=== PATIENT | female | born 1995 | race Two or more races ===

== ENCOUNTER 2023-01-28 09:02 | Day surgery (SDC) | payer MEDICAID ==
[~2023-01-28 09:02] MED LIST: Midazolam 1 MG/ML 2 ML SDV ONE; Propofol 200 MG/20 ML SDV ONE; fentaNYL 100 MCG/2 ML SDV ONE
[2023-01-28] MEDS ORDERED: Lactated Ringers 1,000 ML IV SCH (09:30)
== END 2023-01-28 13:13 | disposition home or self-care (01) ==
LOC: JP.SDS 09:02
PROVIDERS: ATTEND Student in an Organized Health Care Education/Training Program
DX: K21.00 Gastro-esophageal reflux disease with esophagitis, without bleeding (principal); K29.50 Unspecified chronic gastritis without bleeding; K31.7 Polyp of stomach and duodenum; F90.9 Attention-deficit hyperactivity disorder, unspecified type; E66.9 Obesity, unspecified; Z88.8 Allergy status to other drugs, medicaments and biological substances; Z86.69 Personal history of other diseases of the nervous system and sense organs; Z68.35 Body mass index [BMI] 35.0-35.9, adult
CPT/HCPCS: 43239; 81025; 88305; 88342; J2250; J2704; J3010; J7120

== ENCOUNTER 2023-02-09 07:08 | Observation (INO) | payer MEDICAID ==
[2023-02-09] MEDS ORDERED: Bupivacaine 0.5%/EPINEPHrine 1:200,000 50 ML MDV ONE (07:14)
[2023-02-09] MEDS ORDERED: Acetaminophen 500 MG Tab PO ONE (07:15)
[2023-02-09] MEDS ORDERED: fentaNYL 250 MCG/5 ML SDV ONE ×2 (07:39→09:24)
[2023-02-09] MEDS ORDERED: Ondansetron 4 MG/2 ML SDV ONE (07:40)
[2023-02-09] MEDS ORDERED: Propofol 200 MG/20 ML SDV ONE (07:40)
[2023-02-09] MEDS ORDERED: Rocuronium 50 MG/5 ML Vial ONE ×2 (07:40→09:24)
[2023-02-09] MEDS ORDERED: Dexamethasone 4 MG/ML SDV ONE (07:40)
[2023-02-09] MEDS ORDERED: Glycopyrrolate 0.2 MG/ML 5 ML MDV ONE (07:40)
[2023-02-09] MEDS ORDERED: Neostigmine Methylsulfate 1 MG/ML 5 ML Syringe ONE (07:40)
[2023-02-09] MEDS ORDERED: Midazolam 1 MG/ML 2 ML SDV ONE (07:42)
[2023-02-09] MEDS ORDERED: Sodium Chloride 0.9% 1,000 ML IV SCH (08:00)
[2023-02-09] MEDS ORDERED: Indocyanine Green 25 MG SDV IV ONE (08:00)
[2023-02-09] MEDS ORDERED: cefTRIAXone 2 GM in Sodium Chloride 0.9% 50 ML IV ONE (08:30)
[2023-02-09] MEDS ORDERED: Scopolamine 1.5 MG Transdermal Patch TOP ONE (08:45)
[2023-02-09] MEDS ORDERED: metroNIDAZOLE/Normal Saline 500 MG in Premix Bag 1 BAG IV ONE (09:00)
[2023-02-09] MEDS ORDERED: Ondansetron 4 MG/2 ML SDV IVPUSH ONE (10:44)
[2023-02-09] MEDS ORDERED: fentaNYL 50 MCG/ML SDV IVPUSH ONE (10:45)
[2023-02-09] MEDS ORDERED: Ketorolac 15 MG/ML SDV IVPUSH ONE (11:30)
[2023-02-09] MEDS ORDERED: HYDROmorphone 0.5 MG/0.5 ML Syringe IVPUSH PRN ×3 (12:45→21:24)
[2023-02-09] MEDS ORDERED: Sennosides/Docusate Sodium 50-8.6 MG Tab PO PRN (13:09)
[2023-02-09] MEDS ORDERED: ALBUTEROL INH PRN (13:12)
[2023-02-09] MEDS ORDERED: Cyclobenzaprine 10 MG Tab PO PRN (13:15)
[2023-02-09] MEDS ORDERED: Naloxone 0.4 MG/ML SDV IVPUSH PRN (13:17)
[2023-02-09] MEDS: Lactated Ringers 1,000 ML IV SCH ×2 (13:30→22:25)
[2023-02-09] MEDS: oxyCODONE 5 MG Tab PO PRN ×2 (13:51→19:29)
[2023-02-09] MEDS ORDERED: Ondansetron 4 MG/2 ML SDV IVPUSH PRN ×3 (14:45→17:49)
[2023-02-09] MEDS ORDERED: Albuterol 6.7 GM Inhaler INH PRN (14:50)
[2023-02-09] MEDS ORDERED: Prochlorperazine 10 MG/2 ML SDV IVPUSH ONE (17:50)
[2023-02-09] MEDS: Ketorolac 15 MG/ML SDV IVPUSH SCH (18:05)
[2023-02-09] MEDS ORDERED: Ketorolac 15 MG/ML SDV IM SCH (19:00)
[2023-02-09] MEDS ORDERED: Ketorolac 30 MG/ML SDV IM SCH (19:00)
[2023-02-09] MEDS: Ondansetron 4 MG/2 ML SDV IVPUSH PRN (19:27)
[2023-02-09] MEDS ORDERED: Prochlorperazine 10 MG/2 ML SDV IVPUSH PRN (21:24)
[2023-02-09] MEDS ORDERED: Acetaminophen 1,000 MG in Premix Bag 1 BAG IV SCH (21:30)
[2023-02-09] MEDS: lamoTRIgine 100 MG Tab PO SCH (22:13)
[2023-02-09] MEDS: Acetaminophen 1,000 MG in Premix Bag 1 BAG IV SCH (22:23)
[2023-02-10] MEDS ORDERED: Calcium Carbonate 500 MG Tab.Chew PO ONE (01:05)
[2023-02-10] MEDS: Ketorolac 15 MG/ML SDV IVPUSH SCH ×2 (01:05→07:31)
[2023-02-10 06:06] LABS: A/G RATIO 1.2 (1.2-2.2); ALANINE AMINOTRANSFERASE,ALT 27 U/L (12-78); ALBUMIN 3.6 g/dL (3.4-5.0); ALKALINE PHOSPHATASE 54 U/L (46-116); ANION GAP 11.4 mmol/L (5.0-14.0); ASPARTATE AMNIOTRANSFERASE,AST 30 U/L (15-37); BILIRUBIN TOTAL 0.4 mg/dL (0.2-1.0); CARBON DIOXIDE,CO2 25 mmol/L (21-32); CHLORIDE,CL 104 mmol/L (100-108); POTASSIUM,K 3.9 mmol/L (3.6-5.2); PROTEIN TOTAL,TP 6.7 g/dL (6.4-8.2); SODIUM,NA 140 mmol/L (140-148)
[2023-02-10] MEDS: Acetaminophen 1,000 MG in Premix Bag 1 BAG IV SCH (06:09)
[2023-02-10 06:27] LABS: MAGNESIUM 1.8 mg/dL (1.8-2.4); PHOSPHORUS 4.1 mg/dL (2.5-4.9)
[2023-02-10 07:16] LABS: HEMATOCRIT 38.3 % (34.3-46.0); HEMOGLOBIN 13.4 g/dL (11.2-15.5); MEAN CORPUSCULAR HEMOGLOBIN 28.4 pg (31.6-35.5); MEAN CORPUSCULAR VOLUME 81.1 fL (81.4-99.0); RED BLOOD CELL COUNT 4.72 M/uL (3.77-5.24)
[2023-02-10] MEDS: Ondansetron 4 MG/2 ML SDV IVPUSH PRN (07:28)
[2023-02-10] MEDS ORDERED: Pantoprazole 40 MG Tab.CR PO SCH (07:30)
[2023-02-10 07:55] LABS: BLOOD UREA NITROGEN,BUN 7 mg/dL (7-18); CALCIUM 8.8 mg/dL (8.5-10.1); CREATININE 0.6 mg/dL (0.6-1.0); EST CRCL DRUG DOSING (CG) 136.96 mL/min; ESTIMATED GFR 126 mL/min (>60); GLUCOSE RANDOM 109 mg/dL (74-106)
[2023-02-10] MEDS ORDERED: Non-Formulary Medication 1 Each (Omeprazole [Omeprazole] 40 MG Cap.Cr) PO SCH (09:00)
[2023-02-10] MEDS ORDERED: ELAGOLIX SODIUM 150 MG PO SCH (09:00)
[2023-02-10] MEDS: lamoTRIgine 100 MG Tab PO SCH (09:37)
[2023-02-10] MEDS: Lactated Ringers 1,000 ML IV SCH (09:37)
[2023-02-10] MEDS ORDERED: Cyclobenzaprine 10 MG Tab PO PRN (10:00)
[2023-02-10] MEDS ORDERED: Acetaminophen 325 MG Tab PO SCH (12:00)
== END 2023-02-10 16:10 | disposition home or self-care (01) ==
LOC: JP.SDS 07:08 → JP.MS 13:09
PROVIDERS: ADMIT Student in an Organized Health Care Education/Training Program; ATTEND Student in an Organized Health Care Education/Training Program
DX: K81.1 Chronic cholecystitis (principal); K82.8 Other specified diseases of gallbladder; G40.209 Localization-related (focal) (partial) symptomatic epilepsy and epileptic syndromes with complex partial seizures, not intractable, without status epilepticus; F41.8 Other specified anxiety disorders; E66.9 Obesity, unspecified; M25.511 Pain in right shoulder; K21.9 Gastro-esophageal reflux disease without esophagitis; F90.9 Attention-deficit hyperactivity disorder, unspecified type; Z79.899 Other long term (current) drug therapy; J45.20 Mild intermittent asthma, uncomplicated; Z88.8 Allergy status to other drugs, medicaments and biological substances; Z68.34 Body mass index [BMI] 34.0-34.9, adult
CPT/HCPCS: 36415; 47562; 80053; 81025; 83735; 84100; 85027; 96361; 96365; 96375; 96376; A9270; G0378; J0131; J0696; J0780; J1100; J1170; J1885; J2250; J2405; J2704; J2710; J3010; J3360; J3490; J7030; J7120